=== PATIENT | male | born 1975 | race Asian ===

== ENCOUNTER 2017-01-04 15:32 | Emergency (ER) | payer OTHER ==
[~2017-01-04] VITALS: Ht 167.6 cm; Wt 74.8 kg
[~2017-01-04 15:32] MED LIST: ALBU8.5H2 IH
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
--- NOTE | 2017-01-04 15:53 | NUR ---
ROSALES CARDONA AT BEDSIDE FOR EVAL.
--- NOTE | 2017-01-04 16:18 | NUR ---
PT TO RADIOLOGY FOR HEAD AND FACIAL CT SCAN VIA [facility].
--- NOTE | 2017-01-04 17:29 | NUR ---
Patient discharged to [facility] in stable condition. Written and verbal after care instructions given. Patient verbalizes understanding of instruction.
[2017-01-04 17:30] VITALS: BP 125/75
== END 2017-01-04 17:30 ==
LOC: ER 15:34
DX: S02.2XXA Fracture of nasal bones, initial encounter for closed fracture (principal); S09.90XA Unspecified injury of head, initial encounter; S01.01XA Laceration without foreign body of scalp, initial encounter; F41.9 Anxiety disorder, unspecified; F32.9 Major depressive disorder, single episode, unspecified; Y04.0XXA Assault by unarmed brawl or fight, initial encounter; Y92.89 Other specified places as the place of occurrence of the external cause; Y93.89 Activity, other specified; Y99.8 Other external cause status
CPT/HCPCS: 12001; 29130; 70450; 70486; 73130; 90471; 90715; 96372; 99284; A4606; J3490; Z7610

== ENCOUNTER 2017-01-11 15:24 | Emergency (ER) | payer OTHER ==
[~2017-01-11] VITALS: Ht 162.6 cm; Wt 72.6 kg
[2017-01-11 15:24] VITALS: BP 123/79
== END 2017-01-11 16:06 | disposition home or self-care (01) ==
LOC: ER 15:31
DX: S01.01XD Laceration without foreign body of scalp, subsequent encounter (principal)
CPT/HCPCS: 99281; A4606; Z7610; Z7502

== ENCOUNTER 2017-01-17 13:16 | Emergency (ER) | payer OTHER ==
[~2017-01-17] VITALS: Ht 165.1 cm; Wt 68.0 kg
[2017-01-17 13:36] VITALS: BP 134/77
== END 2017-01-17 15:11 | disposition home or self-care (01) ==
LOC: ER 13:29
DX: S62.614A Displaced fracture of proximal phalanx of right ring finger, initial encounter for closed fracture (principal); S66.104A Unspecified injury of flexor muscle, fascia and tendon of right ring finger at wrist and hand level, initial encounter; Y04.2XXA Assault by strike against or bumped into by another person, initial encounter; Y93.89 Activity, other specified; Y92.89 Other specified places as the place of occurrence of the external cause; Y99.8 Other external cause status
CPT/HCPCS: 73140; 99284; A4606 ×2; Z7610 ×2

== ENCOUNTER 2021-10-16 00:20 | Emergency (ER) | payer OTHER ==
[~2021-10-16] VITALS: Ht 167.6 cm; Wt 74.8 kg
[~2021-10-16 00:20] MED LIST changes: -ALBU8.5H2 IH; +ALBU8.5H8 IH
[2021-10-16] MEDS ORDERED: OLANZAPINE 5 MG TABLET PO ONE (00:30)
[2021-10-16] MEDS ORDERED: OLANZAPINE 5 MG TABLET ONE (00:42)
--- NOTE | 2021-10-16 00:45 | NUR ---
TO ER BED 15. DAVID FROM HOME [facility] CALLED FOR [facility] AND [place]. PT ANSWERS SOME QUESTIONS APPROPRIATE AND FOLLOWS SIMPLE COMMANDS. BREATHING IS EVEN AND NON LABORED. BELONGINGS OBTAINED AND SECURED IN LOCKER. SAFETY PRECAUTIONS IN PLACE. WILL CONTINUE TO MONITOR
--- NOTE | 2021-10-16 00:47 | NUR ---
COVID SWAB COLLECTED AND SENT TO LAB
--- NOTE | 2021-10-16 00:51 | NUR ---
URINE COLLECTED SENT TO LAB
[2021-10-16 01:14] LABS: BILIRUBIN,URINE NEGATIVE (NEGATIVE); COLOR,URINE YELLOW (YELLOW); LEUKOCYTE ESTERASE ,URINE NEGATIVE (NEGATIVE); NITRITE, URINE NEGATIVE (NEGATIVE); PROTEIN,URINE NEGATIVE (NEGATIVE); UGLUCOSE NEGATIVE (NEGATIVE); UROBILINOGEN,URINE 0.2 EU/dL (0.2)
[2021-10-16 01:19] LABS: BASOPHILS % (AUTO) 0.5 % (0.0-2.0); EOSINOPHILS % (AUTO) 1.5 % (0.0-6.0); HEMATOCRIT 43 % (39-51); LYMPHOCYTES # (AUTO) 2.6 K/uL (0.8-4.8); LYMPHOCYTES % (AUTO) 36.5 % (20.0-44.0); MEAN CORPUSCULAR HGB CONC 35 g/dl (31.0-36.0); MEAN CORPUSCULAR VOLUME 88 fL (80-96); MONOCYTES # (AUTO) 0.5 K/uL (0.1-1.30); MONOCYTES % (AUTO) 6.5 % (2.0-12.0); NEUTROPHILS # (AUTO) 3.9 K/uL (1.8-8.9); PLATELET COUNT (AUTO) 162 K/uL (150-450); RED BLOOD CELL COUNT(AUTO) 4.86 MIL/uL (4.5-6.0); WHITE BLOOD COUNT (AUTO) 7.1 K/uL (4.3-11.0)
[2021-10-16 01:24] LABS: CARBON DIOXIDE 26 mmol/L (21-32); CHLORIDE 105 mmol/L (98-107); GLUCOSE 159 mg/dL (74-106); POTASSIUM 3.2 mmol/L (3.5-5.1); SODIUM SERUM 140 mmol/L (136-145); UREA NITROGEN, BLOOD 17 mg/dL (7-18)
[2021-10-16 01:28] LABS: ALANINE AMINOTRANSFERASE 126 U/L (12-78); ALBUMIN 3.9 g/dL (3.4-5.0); ALKALINE PHOSPHATASE 109 U/L (46-116); ASPARTATE AMINOTRANSFERASE 33 U/L (15-37); BILIRUBIN,DIRECT 0.1 mg/dL (0.0-0.2); BILIRUBIN,TOTAL 0.3 mg/dL (0.2-1.0); TOTAL PROTEIN, SERUM 7.1 g/dL (6.4-8.2)
[2021-10-16 01:29] LABS: ACETAMINOPHEN 0 ug/ml (10-30); ALCOHOL, BLOOD < 3 mg/dL (0-0)
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
--- NOTE | 2021-10-16 08:00 | NUR ---
PATIENT IN BED, AAOX3, BREATHING EVEN AND NON LABORED
--- NOTE | 2021-10-16 08:42 | NUR ---
PATIENT STATED HE'S NOT TRYING TO HURT HIMSELF OR ANYBODY, DR W[place] AWARE
--- NOTE | 2021-10-16 12:01 | NUR ---
CALLED CLINICIAN [phone] GUS
[2021-10-16] MEDS ORDERED: OLAN5TAB3 PO (14:50)
--- NOTE | 2021-10-16 15:05 | NUR ---
Patient discharged to home in stable condition. Written and verbal after care instructions given. Patient verbalizes understanding of instruction.
--- NOTE | 2021-10-16 15:05 | NUR ---
NURSE QUALITY SEEN PT
[2021-10-16 15:07] VITALS: BP 120/74
== END 2021-10-16 15:07 | disposition home or self-care (01) ==
LOC: ER 00:24
DX: F29 Unspecified psychosis not due to a substance or known physiological condition (principal); Z20.822 Contact with and (suspected) exposure to COVID-19
CPT/HCPCS: 99285; 85025; 80048; 80076; 81003; 36415; 87426; 80143; 80320; 80307; C9803; G0480